=== PATIENT | male | born 1935 | race Caucasian/White ===

== ENCOUNTER → 2024-02-13 13:30 | Outpatient (REF) | payer MEDICARE, SELFPAY ==
[2024-02-13 14:45] LABS: Creatine Phosphokinase 85 U/L (55-170)
== END ==
LOC: REG 13:30
PROVIDERS: ATTENDING PHYSICIAN Family Medicine
DX: M79.604 Pain in right leg (principal); M79.605 Pain in left leg
CPT/HCPCS: 36415; 72110; 72170; 82550

== ENCOUNTER → 2024-03-12 14:44 | Outpatient (REF) | payer MEDICARE, SELFPAY ==
[2024-03-12 16:52] LABS: % Basophils 0.7 % (0-2); % Eosinophils 4.7 % (0-6); % Immature Granulocytes 0.4 % (0-0.5); % Lymphocytes 26.6 % (20.5-51.1); % Neutrophils 56.6 % (42.2-75.2); Absolute Basophils 0.1 10^3/uL (0-0.2); Absolute Eosinophils 0.4 10^3/uL (0-0.7); Absolute Monocytes 0.8 10^3/uL (0.1-0.6); Absolute Neutrophils 4.3 10^3/uL (1.4-6.5); Hematocrit 31.6 % (39.0-52.0); Hemoglobin 10.8 g/dL (13.0-18.0); Mean Corp Hgb Conc. 34.2 g/dL (33.0-37.0); Mean Corpuscular Hgb 31.6 pg (27.0-31.0); Mean Corpuscular Volume 92.4 fL (80.0-94.0); Mean Platelet Volume 9.5 fL (7.4-10.4); Nucleated Red Blood Cells % 0 % (-); Platelet Count 274 10^3/uL (130-400); Red Blood Cell Count 3.42 10^6/uL (4.70-6.10); Red Cell Dist. Width 13.7 % (11.5-14.5); White Blood Cell Count 7.6 10^3/uL (4.8-10.8)
[2024-03-12 17:18] LABS: HDL Cholesterol 54 mg/dl; LDL Cholesterol, Calculated 119 mg/dl; Total Cholesterol 219 mg/dl (50-199); Triglyceride 234 mg/dl (10-149); Very Low Density Lipoprotein 46 mg/dl (0-30)
[2024-03-12 17:31] LABS: Microalbumin/creatinine Ratio 46.2 mg/g
[2024-03-12 17:58] LABS: TSH 1.09 uIU/ml (0.47-4.68)
[2024-03-12 18:17] LABS: Vitamin B12 > 1000 pg/ml (239-931)
[2024-03-13 09:31] LABS: Glycohemoglobin (HgbA1c) 8.4 % (4.0-5.6)
== END ==
LOC: RAD 14:44
PROVIDERS: ATTENDING PHYSICIAN Family Medicine
DX: M54.2 Cervicalgia (principal); E78.5 Hyperlipidemia, unspecified; E11.22 Type 2 diabetes mellitus with diabetic chronic kidney disease; R94.6 Abnormal results of thyroid function studies; R79.89 Other specified abnormal findings of blood chemistry
CPT/HCPCS: 36415; 72050; 80061; 82043; 82570; 82607; 83036; 84443; 85025

== ENCOUNTER → 2024-03-26 10:17 | Outpatient (REF) | payer MEDICARE, SELFPAY ==
[2024-03-26 11:05] LABS: % Basophils 0.7 % (0-2); % Eosinophils 3.8 % (0-6); % Lymphocytes 33.4 % (20.5-51.1); % Monocytes 16.1 % (1.7-9.3); Absolute Eosinophils 0.2 10^3/uL (0-0.7); Absolute Immature Granulocytes 0.1 10^3/uL (0-0.05); Absolute Monocytes 0.9 10^3/uL (0.1-0.6); Absolute Neutrophils 2.6 10^3/uL (1.4-6.5); Hematocrit 29.2 % (39.0-52.0); Mean Corp Hgb Conc. 34.2 g/dL (33.0-37.0); Mean Corpuscular Hgb 31.9 pg (27.0-31.0); Mean Corpuscular Volume 93.3 fL (80.0-94.0); Mean Platelet Volume 9.1 fL (7.4-10.4); Nucleated Red Blood Cells % 0 % (-); Platelet Count 218 10^3/uL (130-400); Red Blood Cell Count 3.13 10^6/uL (4.70-6.10); Red Cell Dist. Width 14.2 % (11.5-14.5); White Blood Cell Count 5.8 10^3/uL (4.8-10.8)
[2024-03-26 14:22] LABS: ALT (SGPT) 14 U/L (0-50); AST (SGOT) 19 U/L (17-59); Albumin 3.8 g/dl (3.5-5.0); Alkaline Phosphatase 75 U/L (38-126); Blood Urea Nitrogen 41 mg/dl (9-20); Calcium 9.4 mg/dl (8.4-10.2); Carbon Dioxide 22 mmol/L (22-30); Chloride 106 mmol/L (98-107); Glucose 168 mg/dl (70-99); Potassium 4.3 mmol/L (3.5-5.1); Sodium 136 mmol/L (135-145); Total Bilirubin 0.2 mg/dl (0.2-1.3); Total Protein 7.4 g/dl (6.3-8.2); eGFR 33.93
[2024-03-27 12:15] LABS: Beta-2-Microglobulin 7.6 mg/L (<=3.0)
[2024-03-28 13:17] LABS: Albumin 3.89 g/dL (3.75-5.01); Alpha 1 Globulin 0.33 g/dL (0.19-0.46); Alpha 2 Globulin 0.89 g/dL (0.48-1.05); Free Kappa Light Chains,Quant 311.69 mg/L (3.30-19.40); Free Lambda Light Chains,Quant 14.26 mg/L (5.71-26.30); IgA 70 mg/dL (68-408); IgG 1767 mg/dL (768-1632); IgM 27 mg/dL (35-263); Immunofixation Electrophoresis IFE Done; Kappa/Lambda Fr Light Ratio 21.86 (0.26-1.65); Monoclonal Protein 1.53 g/dL (<=0.00); Total Protein-Electrophoresis 7.4 g/dL (6.3-8.2)
== END ==
LOC: REG 10:17
PROVIDERS: ATTENDING PHYSICIAN Internal Medicine Hematology & Oncology; FAMILY PHYSICIAN Family Medicine
DX: D47.2 Monoclonal gammopathy (principal)
CPT/HCPCS: 36415; 80053; 82232; 82784; 83521; 84155; 84165; 85025; 86334

== ENCOUNTER → 2024-05-07 10:04 | Outpatient (REF) | payer MEDICARE, SELFPAY | LOC: RAD 10:04 | PROVIDERS: ATTENDING PHYSICIAN Internal Medicine Hematology & Oncology; FAMILY PHYSICIAN Family Medicine | DX: D47.2 Monoclonal gammopathy (principal) | CPT/HCPCS: 77075 ==

== ENCOUNTER → 2024-07-19 12:12 | Outpatient (REF) | payer MEDICARE, SELFPAY ==
[2024-07-19 12:49] LABS: % Eosinophils 4.4 % (0-6); % Immature Granulocytes 0.5 % (0-0.5); % Lymphocytes 26.1 % (20.5-51.1); % Monocytes 12.2 % (1.7-9.3); % Neutrophils 55.8 % (42.2-75.2); Absolute Basophils 0.1 10^3/uL (0-0.2); Absolute Eosinophils 0.3 10^3/uL (0-0.7); Absolute Lymphocytes 1.5 10^3/uL (1.2-3.4); Absolute Monocytes 0.7 10^3/uL (0.1-0.6); Absolute Neutrophils 3.2 10^3/uL (1.4-6.5); Hematocrit 30.1 % (39.0-52.0); Hemoglobin 10.4 g/dL (13.0-18.0); Mean Corp Hgb Conc. 34.6 g/dL (33.0-37.0); Mean Corpuscular Volume 92.6 fL (80.0-94.0); Mean Platelet Volume 9.2 fL (7.4-10.4); Nucleated Red Blood Cells % 0 % (-); Platelet Count 227 10^3/uL (130-400); Red Blood Cell Count 3.25 10^6/uL (4.70-6.10); Red Cell Dist. Width 13.7 % (11.5-14.5); White Blood Cell Count 5.7 10^3/uL (4.8-10.8)
[2024-07-19 13:31] LABS: ALT (SGPT) 12 U/L (0-50); AST (SGOT) 19 U/L (17-59); Albumin 4.1 g/dl (3.5-5.0); Alkaline Phosphatase 78 U/L (38-126); Blood Urea Nitrogen 26 mg/dl (9-20); Calcium 9.7 mg/dl (8.4-10.2); Carbon Dioxide 26 mmol/L (22-30); Chloride 103 mmol/L (98-107); Glucose 160 mg/dl (70-99); Iron 64 ug/dl (49-181); Potassium 4.3 mmol/L (3.5-5.1); Sodium 141 mmol/L (135-145); Total Bilirubin 0.3 mg/dl (0.2-1.3); Total Protein 7.3 g/dl (6.3-8.2); eGFR 48.95
[2024-07-19 13:40] LABS: Percent Saturation 21 % (20-50); Total Iron Binding Capacity 292 ug/dl (261-462)
[2024-07-19 14:05] LABS: Ferritin 57.3 ng/ml (17.9-464.0)
[2024-07-19 14:36] LABS: Folate > 20.0 ng/ml (2.76-20); Vitamin B12 > 1000 pg/ml (239-931)
[2024-07-21 23:33] LABS: Beta-2-Microglobulin 6.2 mg/L (<=3.0)
== END ==
LOC: REG 12:12
PROVIDERS: ATTENDING PHYSICIAN Internal Medicine Hematology & Oncology; FAMILY PHYSICIAN Family Medicine
DX: D47.2 Monoclonal gammopathy (principal)
CPT/HCPCS: 36415; 80053; 82232; 82607; 82728; 82746; 82784; 83521; 83540; 83550; 84155; 84165; 85025; 86334

== ENCOUNTER → 2024-08-07 12:23 | Outpatient (REF) | payer MEDICARE, SELFPAY ==
[2024-08-07 13:13] LABS: % Basophils 0.6 % (0-2); % Eosinophils 2.3 % (0-6); % Immature Granulocytes 0.6 % (0-0.5); % Lymphocytes 34.1 % (20.5-51.1); % Monocytes 13.4 % (1.7-9.3); Absolute Eosinophils 0.1 10^3/uL (0-0.7); Absolute Lymphocytes 1.8 10^3/uL (1.2-3.4); Absolute Monocytes 0.7 10^3/uL (0.1-0.6); Absolute Neutrophils 2.6 10^3/uL (1.4-6.5); Hematocrit 27.9 % (39.0-52.0); Hemoglobin 9.7 g/dL (13.0-18.0); Mean Corp Hgb Conc. 34.8 g/dL (33.0-37.0); Mean Corpuscular Hgb 32.6 pg (27.0-31.0); Mean Corpuscular Volume 93.6 fL (80.0-94.0); Mean Platelet Volume 9.6 fL (7.4-10.4); Nucleated Red Blood Cells % 0 % (-); Platelet Count 202 10^3/uL (130-400); Red Blood Cell Count 2.98 10^6/uL (4.70-6.10); Red Cell Dist. Width 13.2 % (11.5-14.5); White Blood Cell Count 5.3 10^3/uL (4.8-10.8)
[2024-08-07 13:36] LABS: ALT (SGPT) 13 U/L (0-50); AST (SGOT) 24 U/L (17-59); Albumin 3.8 g/dl (3.5-5.0); Alkaline Phosphatase 77 U/L (38-126); Blood Urea Nitrogen 42 mg/dl (9-20); Calcium 9.3 mg/dl (8.4-10.2); Carbon Dioxide 22 mmol/L (22-30); Chloride 101 mmol/L (98-107); Glucose 185 mg/dl (70-99); Iron 31 ug/dl (49-181); Potassium 4.4 mmol/L (3.5-5.1); Sodium 136 mmol/L (135-145); Total Bilirubin 0.3 mg/dl (0.2-1.3); Total Protein 6.9 g/dl (6.3-8.2); eGFR 38.53
[2024-08-07 13:46] LABS: Percent Saturation 11 % (20-50); Total Iron Binding Capacity 268 ug/dl (261-462)
[2024-08-07 14:22] LABS: Vitamin B12 978 pg/ml (239-931)
[2024-08-07 15:54] LABS: Folate > 20.0 ng/ml (2.76-20)
[2024-08-09 02:09] LABS: Beta-2-Microglobulin 7.4 mg/L (<=3.0)
[2024-08-10 10:09] LABS: Albumin 3.75 g/dL (3.75-5.01); Alpha 1 Globulin 0.32 g/dL (0.19-0.46); Alpha 2 Globulin 0.81 g/dL (0.48-1.05); Free Kappa Light Chains,Quant 403.95 mg/L (3.30-19.40); Free Lambda Light Chains,Quant 13.46 mg/L (5.71-26.30); IgA 61 mg/dL (68-408); IgG 1681 mg/dL (768-1632); IgM 25 mg/dL (35-263); Immunofixation Electrophoresis IFE Done; Kappa/Lambda Fr Light Ratio 30.01 (0.26-1.65); Monoclonal Protein 1.36 g/dL (<=0.00)
== END ==
LOC: REG 12:23
PROVIDERS: ATTENDING PHYSICIAN Internal Medicine Hematology & Oncology; FAMILY PHYSICIAN Family Medicine
DX: D47.2 Monoclonal gammopathy (principal)
CPT/HCPCS: 36415; 80053; 82232; 82607; 82728; 82746; 82784; 83521; 83540; 83550; 84155; 84165; 85025; 86334

== ENCOUNTER → 2024-08-20 16:07 | Outpatient (REF) | payer MEDICARE, SELFPAY ==
[2024-08-20 10:45] LABS: % Basophils 0.8 % (0-2); % Eosinophils 4.1 % (0-6); % Immature Granulocytes 0.6 % (0-0.5); % Lymphocytes 22.4 % (20.5-51.1); % Monocytes 9.8 % (1.7-9.3); % Neutrophils 62.3 % (42.2-75.2); Absolute Basophils 0.1 10^3/uL (0-0.2); Absolute Eosinophils 0.3 10^3/uL (0-0.7); Absolute Lymphocytes 1.5 10^3/uL (1.2-3.4); Absolute Monocytes 0.6 10^3/uL (0.1-0.6); Absolute Neutrophils 4.1 10^3/uL (1.4-6.5); Hematocrit 28.9 % (39.0-52.0); Hemoglobin 9.8 g/dL (13.0-18.0); Mean Corp Hgb Conc. 33.9 g/dL (33.0-37.0); Mean Corpuscular Hgb 31.4 pg (27.0-31.0); Mean Corpuscular Volume 92.6 fL (80.0-94.0); Mean Platelet Volume 8.9 fL (7.4-10.4); Nucleated Red Blood Cells % 0 % (-); Platelet Count 333 10^3/uL (130-400); Red Blood Cell Count 3.12 10^6/uL (4.70-6.10); Red Cell Dist. Width 13.6 % (11.5-14.5); White Blood Cell Count 6.5 10^3/uL (4.8-10.8)
== END ==
LOC: OIDL 16:07
PROVIDERS: ATTENDING PHYSICIAN Internal Medicine Hematology & Oncology
DX: D47.2 Monoclonal gammopathy (principal)
CPT/HCPCS: 85025

== ENCOUNTER → 2024-09-17 10:33 | Outpatient (REF) | payer MEDICARE, SELFPAY ==
[2024-09-17 11:17] LABS: % Basophils 0.7 % (0-2); % Eosinophils 7.2 % (0-6); % Immature Granulocytes 0.3 % (0-0.5); % Lymphocytes 26.2 % (20.5-51.1); % Monocytes 10.5 % (1.7-9.3); % Neutrophils 55.1 % (42.2-75.2); Absolute Eosinophils 0.4 10^3/uL (0-0.7); Absolute Lymphocytes 1.6 10^3/uL (1.2-3.4); Absolute Monocytes 0.6 10^3/uL (0.1-0.6); Absolute Neutrophils 3.4 10^3/uL (1.4-6.5); Hematocrit 30.7 % (39.0-52.0); Hemoglobin 10.1 g/dL (13.0-18.0); Mean Corp Hgb Conc. 32.9 g/dL (33.0-37.0); Mean Corpuscular Hgb 31.4 pg (27.0-31.0); Mean Corpuscular Volume 95.3 fL (80.0-94.0); Mean Platelet Volume 9.4 fL (7.4-10.4); Nucleated Red Blood Cells % 0 % (-); Platelet Count 232 10^3/uL (130-400); Red Blood Cell Count 3.22 10^6/uL (4.70-6.10); Red Cell Dist. Width 14.6 % (11.5-14.5); White Blood Cell Count 6.1 10^3/uL (4.8-10.8)
== END ==
LOC: OIDL 10:33
PROVIDERS: ATTENDING PHYSICIAN Internal Medicine Hematology & Oncology
DX: D47.2 Monoclonal gammopathy (principal); D50.0 Iron deficiency anemia secondary to blood loss (chronic)
CPT/HCPCS: 85025

== ENCOUNTER → 2024-10-08 10:19 | Outpatient (REF) | payer MEDICARE, SELFPAY ==
[2024-10-08 11:02] LABS: % Basophils 0.3 % (0-2); % Immature Granulocytes 0.4 % (0-0.5); % Lymphocytes 28.3 % (20.5-51.1); % Monocytes 8.8 % (1.7-9.3); % Neutrophils 56.2 % (42.2-75.2); Absolute Eosinophils 0.4 10^3/uL (0-0.7); Absolute Monocytes 0.6 10^3/uL (0.1-0.6); Absolute Neutrophils 3.9 10^3/uL (1.4-6.5); Hematocrit 31.8 % (39.0-52.0); Hemoglobin 10.8 g/dL (13.0-18.0); Mean Corpuscular Hgb 32.2 pg (27.0-31.0); Mean Corpuscular Volume 94.9 fL (80.0-94.0); Mean Platelet Volume 9.7 fL (7.4-10.4); Nucleated Red Blood Cells % 0 % (-); Platelet Count 205 10^3/uL (130-400); Red Blood Cell Count 3.35 10^6/uL (4.70-6.10); Red Cell Dist. Width 14.6 % (11.5-14.5)
[2024-10-08 11:36] LABS: Iron 89 ug/dl (49-181)
[2024-10-08 11:46] LABS: Percent Saturation 32 % (20-50); Total Iron Binding Capacity 271 ug/dl (261-462)
== END ==
LOC: REG 10:19
PROVIDERS: ATTENDING PHYSICIAN Internal Medicine Hematology & Oncology; FAMILY PHYSICIAN Family Medicine
DX: D47.2 Monoclonal gammopathy (principal); D50.0 Iron deficiency anemia secondary to blood loss (chronic)
CPT/HCPCS: 36415; 82728; 83540; 83550; 85025

== ENCOUNTER → 2024-10-26 06:33 | Outpatient (REF) | payer MEDICARE, SELFPAY ==
[2024-10-26 07:35] LABS: % Basophils 0.8 % (0-2); % Eosinophils 6.9 % (0-6); % Immature Granulocytes 0.9 % (0-0.5); % Lymphocytes 21.4 % (20.5-51.1); % Monocytes 11.3 % (1.7-9.3); % Neutrophils 58.7 % (42.2-75.2); Absolute Basophils 0.1 10^3/uL (0-0.2); Absolute Eosinophils 0.4 10^3/uL (0-0.7); Absolute Immature Granulocytes 0.1 10^3/uL (0-0.05); Absolute Lymphocytes 1.4 10^3/uL (1.2-3.4); Absolute Monocytes 0.7 10^3/uL (0.1-0.6); Absolute Neutrophils 3.7 10^3/uL (1.4-6.5); Hematocrit 32.3 % (39.0-52.0); Hemoglobin 10.5 g/dL (13.0-18.0); Mean Corp Hgb Conc. 32.5 g/dL (33.0-37.0); Mean Corpuscular Volume 98.5 fL (80.0-94.0); Mean Platelet Volume 9.6 fL (7.4-10.4); Nucleated Red Blood Cells % 0 % (-); Platelet Count 196 10^3/uL (130-400); Red Blood Cell Count 3.28 10^6/uL (4.70-6.10); Red Cell Dist. Width 14.8 % (11.5-14.5); White Blood Cell Count 6.4 10^3/uL (4.8-10.8)
[2024-10-26 07:56] LABS: Urine Albumin Negative (Neg - Trace); Urine Bilirubin Negative (Negative); Urine Character Clear (Clear); Urine Color Yellow; Urine Glucose 3+ (Negative); Urine Ketone Negative (Negative); Urine Leukocyte Negative (Negative); Urine Nitrite Negative (Negative); Urine Occult Blood Negative (Negative); Urine Specific Gravity 1.015 (<1.030); Urine Urobilinogen Negative (Neg - 1+)
[2024-10-26 08:21] LABS: ALT (SGPT) 15 U/L (0-50); AST (SGOT) 19 U/L (17-59); Albumin 4.1 g/dl (3.5-5.0); Alkaline Phosphatase 78 U/L (38-126); Blood Urea Nitrogen 47 mg/dl (9-20); Calcium 9.6 mg/dl (8.4-10.2); Carbon Dioxide 24 mmol/L (22-30); Chloride 106 mmol/L (98-107); Glucose 207 mg/dl (70-99); Iron 127 ug/dl (49-181); Magnesium 2.1 mg/dl (1.6-2.3); Phosphorus 4.4 mg/dl (2.5-4.5); Potassium 4.4 mmol/L (3.5-5.1); Sodium 139 mmol/L (135-145); Total Bilirubin 0.3 mg/dl (0.2-1.3); Total Protein 7.3 g/dl (6.3-8.2); Uric Acid 6.5 mg/dl (3.5-8.5)
[2024-10-26 08:31] LABS: Percent Saturation 47 % (20-50); Total Iron Binding Capacity 270 ug/dl (261-462)
[2024-10-26 08:36] LABS: Free T4 0.79 ng/dl (0.78-2.19)
[2024-10-26 08:50] LABS: PSA, Total - Screen 0.29 ng/ml (0.0-4.0)
[2024-10-26 09:26] LABS: Folate > 20.0 ng/ml (2.76-20); Vitamin B12 > 1000 pg/ml (239-931)
== END ==
LOC: REG 06:33
PROVIDERS: ATTENDING PHYSICIAN Family Medicine
DX: I10 Essential (primary) hypertension (principal); E78.5 Hyperlipidemia, unspecified; Z00.00 Encounter for general adult medical examination without abnormal findings; Z12.5 Encounter for screening for malignant neoplasm of prostate; D51.9 Vitamin B12 deficiency anemia, unspecified
CPT/HCPCS: 80053; 81003; 82607; 82728; 82746; 83540; 83550; 83735; 84100; 84439; 84443; 84550; 85025; G0103

== ENCOUNTER → 2025-01-09 13:49 | Outpatient (REF) | payer MEDICARE, SELFPAY ==
[2025-01-09 14:51] LABS: Hemoglobin 10.6 g/dL (13.0-18.0)
[2025-01-09 15:39] LABS: Blood Urea Nitrogen 40 mg/dl (9-20); Calcium 9.3 mg/dl (8.4-10.2); Carbon Dioxide 24 mmol/L (22-30); Chloride 104 mmol/L (98-107); Glucose 298 mg/dl (70-99); Phosphorus 3.9 mg/dl (2.5-4.5); Potassium 4.4 mmol/L (3.5-5.1); Sodium 137 mmol/L (135-145)
[2025-01-09 15:46] LABS: Protein/creatinine Ratio 0.5; Urine Protein 31 mg/dl
[2025-01-09 15:50] LABS: Intact PTH 12.5 pg/ml (13.6-85.8)
== END ==
LOC: REG 13:49
PROVIDERS: ATTENDING PHYSICIAN Specialist; FAMILY PHYSICIAN Family Medicine
DX: I10 Essential (primary) hypertension (principal); E11.22 Type 2 diabetes mellitus with diabetic chronic kidney disease; E78.2 Mixed hyperlipidemia; E78.5 Hyperlipidemia, unspecified; R94.6 Abnormal results of thyroid function studies
CPT/HCPCS: 36415; 80048; 82570; 83970; 84100; 84156; 85018

== ENCOUNTER → 2025-02-11 12:02 | Outpatient (REF) | payer MEDICARE, SELFPAY ==
[2025-02-11 12:47] LABS: % Basophils 0.8 % (0-2); % Eosinophils 3.6 % (0-6); % Immature Granulocytes 0.5 % (0-0.5); % Lymphocytes 35.2 % (20.5-51.1); % Monocytes 12.2 % (1.7-9.3); % Neutrophils 47.7 % (42.2-75.2); Absolute Eosinophils 0.1 10^3/uL (0-0.7); Absolute Lymphocytes 1.4 10^3/uL (1.2-3.4); Absolute Monocytes 0.5 10^3/uL (0.1-0.6); Absolute Neutrophils 1.8 10^3/uL (1.4-6.5); Hemoglobin 9.8 g/dL (13.0-18.0); Mean Corp Hgb Conc. 33.8 g/dL (33.0-37.0); Mean Corpuscular Hgb 32.7 pg (27.0-31.0); Mean Corpuscular Volume 96.7 fL (80.0-94.0); Mean Platelet Volume 9.3 fL (7.4-10.4); Nucleated Red Blood Cells % 0 % (-); Platelet Count 213 10^3/uL (130-400); Red Cell Dist. Width 14.1 % (11.5-14.5); White Blood Cell Count 3.9 10^3/uL (4.8-10.8)
[2025-02-11 13:11] LABS: ALT (SGPT) 20 U/L (0-50); AST (SGOT) 24 U/L (17-59); Albumin 3.9 g/dl (3.5-5.0); Alkaline Phosphatase 77 U/L (38-126); Blood Urea Nitrogen 27 mg/dl (9-20); Calcium 9.1 mg/dl (8.4-10.2); Carbon Dioxide 24 mmol/L (22-30); Chloride 104 mmol/L (98-107); Glucose 233 mg/dl (70-99); Iron 81 ug/dl (49-181); Potassium 4.1 mmol/L (3.5-5.1); Sodium 134 mmol/L (135-145); Total Bilirubin 0.6 mg/dl (0.2-1.3); Total Protein 6.9 g/dl (6.3-8.2); eGFR 41.44
[2025-02-11 13:22] LABS: Percent Saturation 31 % (20-50); Total Iron Binding Capacity 256 ug/dl (261-462)
[2025-02-12 09:54] LABS: Beta-2-Microglobulin 6.9 mg/L (<=3.0)
[2025-02-14 02:57] LABS: Albumin 3.69 g/dL (3.75-5.01); Alpha 1 Globulin 0.28 g/dL (0.19-0.46); Alpha 2 Globulin 0.75 g/dL (0.48-1.05); Free Kappa Light Chains,Quant 372.81 mg/L (3.30-19.40); Free Lambda Light Chains,Quant 14.26 mg/L (5.71-26.30); IgA 64 mg/dL (68-408); IgG 1586 mg/dL (768-1632); IgM 23 mg/dL (35-263); Immunofixation Electrophoresis IFE Done; Kappa/Lambda Fr Light Ratio 26.14 (0.26-1.65); Total Protein-Electrophoresis 6.7 g/dL (6.3-8.2)
== END ==
LOC: REG 12:02
PROVIDERS: ATTENDING PHYSICIAN Internal Medicine Hematology & Oncology
DX: D47.2 Monoclonal gammopathy (principal); D50.0 Iron deficiency anemia secondary to blood loss (chronic)
CPT/HCPCS: 36415; 80053; 82232; 82728; 82784; 83521; 83540; 83550; 84155; 84165; 85025; 86334

== ENCOUNTER → 2025-07-25 14:03 | Outpatient (REF) | payer MEDICARE, SELFPAY ==
[2025-07-25 14:41] LABS: Hematocrit 28.3 % (39.0-52.0); Hemoglobin 9.3 g/dL (13.0-18.0); Mean Corp Hgb Conc. 32.9 g/dL (33.0-37.0); Mean Corpuscular Volume 95.0 fL (80.0-94.0); Nucleated Red Blood Cells % 0 % (-); Platelet Count 228 10^3/uL (130-400); Red Cell Dist. Width 13.6 % (11.5-14.5)
[2025-07-25 15:07] LABS: ALT (SGPT) 16 U/L (0-50); AST (SGOT) 21 U/L (17-59); Albumin 3.9 g/dl (3.5-5.0); Alkaline Phosphatase 70 U/L (38-126); Blood Urea Nitrogen 20 mg/dl (9-20); Calcium 8.8 mg/dl (8.4-10.2); Carbon Dioxide 23 mmol/L (22-30); Chloride 109 mmol/L (98-107); Glucose 85 mg/dl (70-99); Iron 55 ug/dl (49-181); Potassium 4.1 mmol/L (3.5-5.1); Sodium 138 mmol/L (135-145); Total Protein 7.0 g/dl (6.3-8.2); eGFR 38.30
[2025-07-25 15:16] LABS: Total Iron Binding Capacity 247 ug/dl (261-462)
[2025-07-25 15:37] LABS: Ferritin 233.0 ng/ml (17.9-464.0)
== END ==
LOC: REG 14:03
PROVIDERS: ATTENDING PHYSICIAN Internal Medicine Hematology & Oncology; FAMILY PHYSICIAN Family Medicine
DX: D47.2 Monoclonal gammopathy (principal); D50.0 Iron deficiency anemia secondary to blood loss (chronic)
CPT/HCPCS: 36415; 80053; 82232; 82728; 82784; 83521; 83540; 83550; 84155; 84165; 85025; 86334

== ENCOUNTER → 2025-07-30 15:17 | Outpatient (REF) | payer MEDICARE, SELFPAY ==
[2025-07-30 15:54] LABS: Hemoglobin 9.3 g/dL (13.0-18.0)
[2025-07-30 16:24] LABS: Blood Urea Nitrogen 17 mg/dl (9-20); Calcium 9.1 mg/dl (8.4-10.2); Carbon Dioxide 27 mmol/L (22-30); Chloride 105 mmol/L (98-107); Glucose 267 mg/dl (70-99); Potassium 4.5 mmol/L (3.5-5.1); Sodium 136 mmol/L (135-145); eGFR 35.76
[2025-07-30 16:30] LABS: Urine Character Clear (Clear)
[2025-07-30 16:41] LABS: Urine Red Blood Cell 0-2 /HPF (0-2); Urine White Cell 0-2 /HPF (0-5)
== END ==
LOC: REG 15:17
PROVIDERS: ATTENDING PHYSICIAN Specialist; FAMILY PHYSICIAN Family Medicine
DX: I10 Essential (primary) hypertension (principal); E78.2 Mixed hyperlipidemia; N17.9 Acute kidney failure, unspecified
CPT/HCPCS: 36415; 80048; 81003; 81015; 82570; 83970; 84100; 84156; 85018

== ENCOUNTER 2025-08-06 00:51 | Inpatient (IN) | payer MEDICARE, SELFPAY ==
[2025-08-05 18:33] VITALS: BP 114/93
[2025-08-05] MEDS: MOTRIN 400 MG PO (18:44)
[2025-08-05 19:08] LABS: Hematocrit 26.7 % (39.0-52.0); Hemoglobin 9.1 g/dL (13.0-18.0); Mean Corp Hgb Conc. 34.1 g/dL (33.0-37.0); Mean Corpuscular Volume 94.0 fL (80.0-94.0); Nucleated Red Blood Cells % 0 % (-); Platelet Count 197 10^3/uL (130-400); Red Cell Dist. Width 14.3 % (11.5-14.5)
[2025-08-05 19:12] LABS: Urine Character Slightly Cloudy (Clear)
[2025-08-05 19:23] LABS: Urine Squamous Cell 0-2 /LPF (Few)
[2025-08-05 19:40] LABS: ALT (SGPT) 24 U/L (0-50); AST (SGOT) 59 U/L (17-59); Albumin 3.8 g/dl (3.5-5.0); Alkaline Phosphatase 75 U/L (38-126); Blood Urea Nitrogen 34 mg/dl (9-20); Calcium 9.2 mg/dl (8.4-10.2); Carbon Dioxide 24 mmol/L (22-30); Chloride 105 mmol/L (98-107); Glucose 53 mg/dl (70-99); Potassium 3.6 mmol/L (3.5-5.1); Sodium 137 mmol/L (135-145); Total Protein 7.3 g/dl (6.3-8.2); eGFR 29.72
--- NOTE | 2025-08-05 19:44 | EDRN ---
Pt low serum glu. He reports his sensor notified him and he took his glucose pills. He declined boxed lunch. Informed of plan to accucheck 15 min from ingestion.
[2025-08-05 20:02] LABS: Glucose - Point of Care 127 mg/dl (70-99)
--- NOTE | 2025-08-05 20:02 | EDRN ---
Waiting room, accucheck 127. Awaiting room. Informed of delays.
[2025-08-05 20:39] VITALS: BP 112/57; BMI 25.3
[2025-08-05 21:00] VITALS: BP 108/50
--- NOTE | 2025-08-05 21:49 | ED.GENMED ---
History of Present Illness
General
Chief Complaint: Fall
Source: patient
Time Seen by Provider: 08/05/25 20:53
History of Present Illness
History of Present Illness:
89-year-old male presents to the emergency room for evaluation of mild confusion, increased sleepiness. Symptoms been present for the past couple days. Patient has a continuous glucose monitor which has been noting his glucose to be low early in
the morning. He is taking his prescribed dose of insulins. He denies any nausea, vomiting, decreased appetite. He is noted to have a temperature of 102 earlier today at an urgent care. He was given Tylenol. Patient denies any cough, sore
throat, dysuria or frequency. He denies any rash. He is not outside for any significant amount of time other than going back and forth to a car.
Past History
Past History
ED Past Medical History: HTN, Hypercholesterolemia, NIDDM and Other (Vertigo)
ED Past Surgical History: None
Social History
Tobacco: Non-smoker
Alcohol: None
Drug: None
Personal:
Living: with family
Employment: Retired
Family History
Family History: Other (reviewed and noncontributory)
Phy Exam
Physical Exam
Physical Exam:
General: Awake, Alert, Oriented X3. No acute distress. Appears stated age
Vitals: Febrile on arrival
Head: Atraumatic
Eyes: Pupils equal, EOMI
Throat: Airway intact, no exudates
Neck: Trachea midline
Lungs: Clear and equal b/l
Heart: Regular rate, no murmurs
Abd: Soft, Nontender, No pulsatile mass
Neuro: Nonfocal
Skin: Warm, dry, no rash
Extremities: pulses equal b/l, no edema
Course
Orders/Labs/Results
Orders:
Orders
08/05/25 18:38
Ibuprofen [Motrin] 400 mg PO NOW STA
08/05/25 18:41
CR Chest - 2 Views Urgent
Comment:
Reason For Exam: fever
08/05/25 18:54
Complete Blood Count/With Diff Urgent
Comprehensive Metabolic Panel Urgent
Lactic Acid Urgent
Urine Microscopic Reflex Cult Urgent
Urine Reflex Culture from UA [Urinalysis Reflex To Culture] Urgent
Date Specimen was Collected: 08/05/25
Time Specimen was Collected: 18:46
Urine Culture Urgent
JUAN Source: U
Specimen Description:
Date Specimen was Collected: 08/05/25
Time Specimen was Collected: 18:46
08/05/25 21:38
COVID-19 Antigen Urgent
Source: Nasal Swab
08/05/25 21:52
0.9% Sodium Chloride 500 ml [Nss] 500 ml IV BOLUS
08/05/25 21:53
Bedside Glucose- Treatment ONCE
08/05/25 23:45
Blood Culture Q30M
JUAN Source: Blood/Venous
Specimen Description:
08/06/25 00:09
Blood Culture Q30M
JUAN Source: Blood/Venous
Specimen Description:
08/06/25 00:38
Admit/Transfer Patient As Directed
Co-Sign Provider:
Level of Care: Inpatient admission
Assign to:: Telemetry
Physician / Group: Ramez
Diagnosis: Hypoglycemia, RAJINDER, Fever
Reason for Telemetry: Arrhythmia
Date to Stop Telemetry: 08/09/25
Time to Stop Telemetry: 11:00
Reason for Hospitalization: Hypoglycemia, RAJINDER, Fever
Expected length of stay greater than two midnights?: Yes
ELOS- Estimated Length of Stay in days: 3
I certify the patient meets the requirements for IP care: Yes
PRN Pain Medication Management As Directed
May give lesser potent ordered pain med per pt: Yes
preference::
Protocol:: Medication orders for pain may be administered in a
manner that supports deferring to patient preference
when the pt is:
- Requesting an ordered lesser potent pain medication.
Least to most potent pain medications are defined
as: acetaminophen < NSAID < tramadol < opioids
(morphine, oxycodone, hydromorphone).
- Requesting a lesser dose of the same medication IF
ORDERED.
- Requesting a less intrusive route of administration
if both routes are prescribed by the provider (PO <
IV).
08/06/25 00:41
Code Status As Directed
Resuscitation Status: Full Code
08/09/25 11:00
DC Protocol for Telemetry ONCE
Abnormal Lab Results
08/05/25 08/05/25 08/05/25
18:54 20:00 23:20
RBC 2.84 L 10^6/uL
(4.70-6.10)
Hgb 9.1 L g/dL
(13.0-18.0)
Hct 26.7 L %
(39.0-52.0)
MCH 32.0 H pg
(27.0-31.0)
Abs Immat Gran (auto) 0.1 H 10^3/uL
(0-0.05)
Absolute Neuts (auto) 7.0 H 10^3/uL
(1.4-6.5)
Absolute Lymphs (auto) 1.1 L 10^3/uL
(1.2-3.4)
Absolute Monos (auto) 1.5 H 10^3/uL
(0.1-0.6)
Immature Gran % 0.6 H %
(0-0.5)
Lymphocytes % 11.0 L %
(20.5-51.1)
Monocytes % 15.4 H %
(1.7-9.3)
BUN 34 H mg/dl
(9-20)
Creatinine 2.1 H mg/dL
(0.7-1.3)
Glucose 53 L* mg/dl
(70-99)
Ur Occult Blood Reflex 4+ A
(Negative)
Urine RBC 7-10 A /HPF
(0-2)
Urine Bacteria (Reflex) Moderate A
(Negative)
Urine Albumin (Reflex) 3+ A
(Neg - Trace)
POC Glucose 127 H mg/dl 61 L mg/dl
(70-99) (70-99)
08/05/25 18:54
08/05/25 18:54
Vital Signs
Initial and Last Documented VS:
Initial Vital Signs
Temp Pulse Resp BP Pulse Ox
101.6 F H 103 20 114/93 93
08/05/25 18:33 08/05/25 18:33 08/05/25 18:33 08/05/25 18:33 08/05/25 18:33
Last Documented Vital Signs
Temp Pulse Resp BP Pulse Ox
98.7 F 66 14 120/56 98
08/05/25 20:41 08/06/25 01:45 08/06/25 01:45 08/06/25 01:00 08/06/25 01:30
MDM/Problems Addressed
Differential Diagnosis Includes:
UTI, pneumonia, viral illness
MDM/Problems Addressed:
COVID test negative. Chest x-ray shows no acute abnormality on my review. Urinalysis is not suggestive of a urinary tract infection. Platelet count is normal. Patient has no rash, LFTs are normal which argue against a tickborne illness. In
addition to his febrile illness the patient has been having episodes of hypoglycemia. He arrived hypoglycemic which did respond to oral glucose replacement. Glucose improved for couple hours but again dropped to 60. Further glucose replacement
was given orally but I feel patient should be hospitalized for close glucose monitoring as well as supportive care for fever and monitoring of cultures.
*Radiology
Radiology exam reviewed: preliminary read by ED provider (No acute abnormality to my review of the patient's chest x-ray)
*Pulse Oximetry
SaO2: 93
Oxygen Mode of Delivery: Room air
Patient hypoxic: no
*[facility] [employer] [facility] Interpretation
Rate: normal
Interpretation: normal
Rhythm: sinus
*Critical Care Note
Total Time (30-74mins, 75-104mins- exclusive of procedures): Not Applicable
Patient Management
Social determinants of health affecting care: Living situation (Lives with family) and Strong social support
ED Attending Note
-
Portions of this chart may have been created with voice recognition software.� Occasional wrong word or��sound alike� substitutions may have occurred due to the inherent limitations of voice recognition software.
Discharge Plan
Departure
Patient Disposition: Admit
Date of Disposition: 08/05/25
Time of Disposition: 23:38
Admit to: Med/Surg
Presentation/result/management discussed w/ accepting MD/DO: Hospitalist
Condition: Fair
Discharge Problem:
Fever, Hypoglycemia
Interventions
Interventions:
*Risk Screen - Suicide Last Done: 08/05/25 20:39
*General Assessment Last Done: 08/05/25 18:33
*Neglect/Abuse Screening Last Done: 08/05/25 20:39
*ED- Fall Risk Assessment Last Done: 08/05/25 20:39
*ED COVID-19 Vaccine History Last Done: 08/05/25 20:39
*Nursing Disposition Last Done: 08/06/25 01:49
ED-Musculoskeletal Assessment Last Done: 08/05/25 20:45
ED- Neurological Assessment Last Done: 08/05/25 20:45
ED-Skin Assessment Last Done: 08/05/25 20:45
Discharge Date and Time
Discharge Date/Time: 08/06/25 01:50
[2025-08-05 21:54] LABS: COVID-19 Antigen Negative (Negative)
[2025-08-05 22:09] VITALS: BP 116/61
[2025-08-05 22:10] LABS: Glucose - Point of Care 82 mg/dl (70-99)
[2025-08-05] MEDS: NSS 500 IV (22:11)
[2025-08-05 23:00] VITALS: BP 111/53
[2025-08-05 23:22] LABS: Glucose - Point of Care 61 mg/dl (70-99)
--- NOTE | 2025-08-05 23:28 | EDRN ---
Patient's blood sugar was 61, informed Dr. Toussaint and gave patient some orange juice to drink, updated patient and family member informing them that the patient will be admitted to the hospital
[2025-08-06] VITALS (11 sets, daily range): BP systolic 93–145; BP diastolic 51–73; PULSE 67–95; O2SAT 97; BMI 24.6
[2025-08-06 00:08] LABS: Glucose - Point of Care 99 mg/dl (70-99)
--- NOTE | 2025-08-06 00:43 | HPS.HSE ---
Family Physician
-
Family Physician: Edmar Pulliam
Chief Complaint
-
Confusion / Lethargy
History of Present Illness
Patient is an 89y M with PMH significant for hypertension and DM-II who presents to ED for evaluation of lethargy and mild confusion. Patient states that he has been having low sugars at home for the past 3-4 days. He reports needing to take
5-6 glucose tablets per day and usually he does not take these at all. He states that his only recent med change was the addition of dicyclomine for IBS symptoms. This was about one week ago. He took several doses - but stopped once he began
having low blood sugars. He denies any recent changes in DM medications / insulin doses.
He denies any other complaints including fevers / chills, sore throat, cough / SOB, abdominal pain, N/V/D, etc.
Patient was noted to have fever today at [facility] and again here on triage.
Medical History
Past Medical History
Past Medical History: Reports Other
Additional Past Medical History:
MGUS
Hypertension
DM-II
CKD III
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
Thyroid Disease
Skin Cancer
Past Surgical History: Reports Other
Additional Past Surgical History:
T&A
Social History
Tobacco: Former Smoker (Quit smoking in 1969.)
Alcohol: None
Drug: None
Family History
Family History: Not pertinent
Allergies / Home Medications
Allergies reflects when Allergies were last updated in [employer].
Home Medications with original date entered in [employer]
Allergy/Medication List:
Allergies
Allergy/AdvReac Type Severity Reaction Status Date / Time
No Known Allergies Allergy Verified 08/05/25 18:33
Home Medications
aspirin 81 mg tablet,delayed release 81 mg PO DAILY 10/28/21
acetaminophen 325 mg tablet (Tylenol) 650 mg PO Q6HPRN PRN mild pain 08/05/25
dicyclomine 10 mg capsule 10 mg PO DAILYPRN PRN stoamch issuses 08/05/25
gabapentin 100 mg capsule 200 mg PO HS 08/05/25
glimepiride 4 mg tablet 4 mg PO BID 08/05/25
insulin glargine 100 unit/mL (3 mL) subcutaneous pen (Lantus Solostar U-100 Insulin) 10 unit SC DAILY 08/05/25
lisinopril 20 mg-hydrochlorothiazide 25 mg tablet 1 tab PO DAILY 08/05/25
omeprazole 20 mg tablet,delayed release 20 mg PO BID 08/05/25
tamsulosin 0.4 mg capsule (Flomax) 0.4 mg PO BID 08/05/25
therapeutic multivitamin 1 tab PO DAILY 08/05/25
Review of Systems
-
History Source: Patient
A 12 point ROS was completed and negative except as noted: Yes
Constitutional: Reports Fatigue; Denies Fever or Chills
EENT: Denies Sore Throat or Runny Nose
Respiratory: Denies Cough or Trouble Breathing
Cardiac: Denies Chest Pain or Palpitations
Abdomen/GI: Denies Abdominal Pain, Nausea, Vomiting or Diarrhea
: Denies Dysuria, Frequency or Flank Pain
Musculoskeletal: Denies Joint Pain
Neurological: Denies Dizzy or Headache
Physical Exam
Vital Signs
Vital Signs
Temp Pulse Resp BP Pulse Ox
98.7 F 63 13 117/63 100
08/05/25 20:41 08/06/25 00:00 08/06/25 00:00 08/06/25 00:00 08/06/25 00:00
Physical Exam
General: Other (89y M sleeping on my arrival but wakes easily. Answers questions / follows commands appropriately.)
HEENT: Moist mucous membranes and PERRLA
Respiratory: Clear; No Wheezes, Rales or Rhonchi
Cardiac: S1/S2, Regular Rhythm and Murmur (II/ NATALIIA)
GI: Soft, Non Tender, Non Distended and Normal Bowel Sounds
Musculoskeletal: No Clubbing, No Cyanosis and No Edema
Neuro: AO x 3 and Nonfocal/grossly intact
Laboratory Results
-
08/05/25 18:54
08/05/25 18:54
Laboratory Results
Lactic Acid 1.0 mmol/L (0.7-2.0) 08/05/25 18:54
Total Bilirubin 0.4 mg/dl (0.2-1.3) 08/05/25 18:54
AST 59 U/L (17-59) 08/05/25 18:54
ALT 24 U/L (0-50) 08/05/25 18:54
Alkaline Phosphatase 75 U/L (38-126) 08/05/25 18:54
Impression/Plan
-
A/P: Patient is an 89y M with PMH significant for hypertension, DM-II and thyroid disease who presents to ED for evaluation of lethargy, weakness and low blood sugars at home.
Hypoglycemia
DM-II, Uncontrolled
- Admit for further evaluation and treatment.
- ? med effect related to newly added dicyclomine - though not a common adverse effect.
- ? infectious etiology given fever - though no focal symptoms / obvious source.
- Hold sulfonylureas.
- Supplemental dextrose in IVFs overnight.
- Follow glucose closely until stable.
- Update A1C.
- Adjust insulin dose / med regimen as needed to avoid hypoglycemia.
Fever
- Unclear etiology. ? viral process.
- Follow fever curve and monitor for any new / focal symptoms.
- Follow-up culture data.
- CXR and COVID negative. UA unremarkable. No abdominal tenderness or GI symptoms.
RAJINDER on CKD III
- SCr = 2.1 compared to recent baseline of 1.7 on outpatient labs.
- IVFs as noted above.
- Hold lisinopril-HCT.
- Follow for improvement in renal function.
Benign Hypertension
- Holding lisinopril - HCT as noted above.
- Monitor BP and add alternate medication if needed.
MGUS
Anemia of Chronic Disease
- Stable. Hgb is at / near known baseline.
- Follow for changes in cell counts.
Thyroid Disease
- History of thyroiditis.
- Check TFTs given hypoglycemia.
DVT Prophylaxis: SCDs
Code Status: Full
[2025-08-06 02:03] LABS: Glucose - Point of Care 121 mg/dl (70-99)
--- NOTE | 2025-08-06 02:30 | PTCARENOTE ---
Pt received from ED via stretcher at 0150. Pt pleasant, AAOx3, VSS, and able to ambulate into room with assistance. Pt absent of pain at this time. Pt receptive to room and call leal. Pt bed in lowest position and call leal within reach. Pt educated
on importance of call leal usage, pt relays understanding. Bed alarm placed and plugged in. Will continue with current plan of care.
[2025-08-06] MEDS: D5/0.9% SODIUM CHLORIDE 1000 IV (02:36)
[2025-08-06 04:01] LABS: Glucose - Point of Care 239 mg/dl (70-99)
[2025-08-06 07:59] LABS: Glucose - Point of Care 292 mg/dl (70-99)
[2025-08-06 08:13] LABS: Hematocrit 25.3 % (39.0-52.0); Hemoglobin 8.2 g/dL (13.0-18.0); Mean Corp Hgb Conc. 32.4 g/dL (33.0-37.0); Mean Corpuscular Volume 95.8 fL (80.0-94.0); Platelet Count 212 10^3/uL (130-400); Red Cell Dist. Width 14.6 % (11.5-14.5)
[2025-08-06] MEDS: FLOMAX 0.4 MG PO ×2 (08:13→20:06)
[2025-08-06] MEDS: PROTONIX 40 MG PO ×2 (08:14→20:06)
[2025-08-06] MEDS: ASPIR LOW (ENTERIC COATED) 81 MG PO (08:14)
[2025-08-06] MEDS: LANTUS 0.08 UNITS SC (08:15)
[2025-08-06] MEDS: NOVOLOG FLEXPEN-LOW RESISTANCE 3 UNITS SC (08:16)
[2025-08-06 09:52] LABS: Blood Urea Nitrogen 37 mg/dl (9-20); Calcium 8.4 mg/dl (8.4-10.2); Carbon Dioxide 21 mmol/L (22-30); Chloride 107 mmol/L (98-107); Estimated Creatinine Clearance 20 ml/min; Glucose 290 mg/dl (70-99); Potassium 3.8 mmol/L (3.5-5.1); Sodium 136 mmol/L (135-145); eGFR 26.64
[2025-08-06 10:37] LABS: Glycohemoglobin (HgbA1c) 7.2 % (4.0-5.6)
--- NOTE | 2025-08-06 11:10 | W.PN.HOSP.TC ---
Today's Communication/Plan
-
Assessment / Plan
Assessment / Plan
General: No Apparent Distress, Comfortable and Conversant
HEENT: NormoCephalic, Moist mucous membranes, Atraumatic
Respiratory: Clear and Non Labored Respirations
Cardiac: S1/S2 and Regular Rhythm; No Rub or Gallop
GI: Soft, Non Tender, Non Distended and Normal Bowel Sounds
Musculoskeletal: No Edema, no deformity
Skin: Warm and dry
: NO Foster
Neuro: Awake, Alert, Nonfocal/grossly intact
Psych: Calm and Intact Judgment/Insight
Mr. Cohen is an 89-year-old male with medical history of CKD stage III, insulin-dependent diabetes mellitus, MGUS, IBS, Gonzales's esophagus, and thyroiditis who presented with lethargy and confusion. He was found to be significantly
hypoglycemic. Patient reported that his blood sugars had been low over the past 3 to 4 days after starting dicyclomine for IBS symptoms. He stopped taking his dicyclomine prior to arrival. He has been using his same home doses of insulin glargine
and glimepiride. He was found to be mildly febrile in the ED with a temperature of 101.6 �F. Labs revealed an RAJINDER on CKD with an initial creatinine of 2.1 (baseline appears to be around 1.7). He was started on IV fluids with dextrose and admitted
for further evaluation and management.
Hypoglycemia:
- Unclear etiology
- Possibly due to dicyclomine causing decreased transit time and subsequent increased absorption of home glimepiride doses
- Could also possibly be due to thyroid disease considering his history of thyroiditis, current thyroid studies are abnormal with a TSH of 8.88 and a free T4 of 0.75
- Blood sugar currently elevated now that he has been on IV fluids with dextrose, will hold IV fluids for now
- Recommend avoiding further dicyclomine use for now
- Trial low-dose Synthroid, although this is extremely slow acting and will need outpatient follow-up for further titration
- Continue insulin glargine and sliding scale for now, holding glimepiride
IDDM:
- Hemoglobin A1c 7.2%
- Plan as above
RAJINDER on CKD:
- CKD stage III at baseline, creatinine appears to be 1.5-2.0 at baseline
- Initial creatinine 2.1, increased to 2.3 today
- Received resuscitative fluids
- Holding home lisinopril-HCTZ for now
- Will monitor
Fever:
- Initial temperature of 101.6 �F, however has been afebrile since
- No evidence of acute infection, cultures negative to date, chest x-ray shows no acute abnormalities, no pulmonary or abdominal symptoms
- Will monitor off antibiotics for now
Hypertension:
- Holding home lisinopril-HCTZ due to RAJINDER on CKD
- Blood pressure currently well-controlled
- Will monitor
Thyroid disease:
- History of thyroiditis
- Abnormal thyroid function test here with a TSH of 8.88 and a free T4 of 0.75
- Will trial on low-dose Synthroid
DVT prophylaxis: SCDs
CODE STATUS: Full code
Total time spent on today's encounter was 56 minutes
Anticipated Discharge: 24 - 48 hours
Subjective/Interval History
-
Date of Service: August 06, 2025
Patient was seen and examined at bedside this morning. Feeling well, chest finishes breakfast. Remains on IV fluids with dextrose. Afebrile since initial temp of 101.6 agrees Fahrenheit at time of admission. Cultures remain negative.
Objective Data
-
Labs:
Laboratory Results
08/06/25
06:59
WBC 6.8
Hgb 8.2 L
Hct 25.3 L
Plt Count 212
Sodium 136
Potassium 3.8
Chloride 107
Carbon Dioxide 21 L
BUN 37 H
Creatinine 2.3 H
Glucose 290 H
Calcium 8.4
Vital Signs:
Vital Signs
Temp Pulse Resp BP Pulse Ox
97.5 F 70 16 121/51 98
08/06/25 08:20 08/06/25 08:20 08/06/25 08:20 08/06/25 08:20 08/06/25 08:20
I&O
08/05/25 08/06/25 08/07/25
06:59 06:59 06:59
Intake Total 300 / 300
Balance 300 / 300
Review of Systems
-
History Source: Patient
All other systems: Reviewed and negative
Physical Exam
-
General: No Apparent Distress
--- NOTE | 2025-08-06 11:30 | CM ---
CM reviewed chart, patient seen bedside, initial assessment completed. Patient is an 89y M with PMH significant for hypertension and DM-II who presents to ED for evaluation of lethargy and mild confusion.
Patient able to complete initial assessment with patient. Patient resides independently in a two level home, no steps to enter. Patient reports having a cane in the home but does not typically use it. Patient reports VN in past, unsure name of
agency, denies SNF. PCP Edmar Pulliam, Pharmacy [facility], confirms prescription coverage. Patient denies insecurities at home. CM discussed therapy recommendations of VN, patient declining at this time. CM will continue to follow for all
discharge planning needs.
Plan; home when stable, declining VN at this time
[2025-08-06 11:52] LABS: Glucose - Point of Care 74 mg/dl (70-99)
[2025-08-06] MEDS: NOVOLOG FLEXPEN-LOW RESISTANCE SC (11:57)
[2025-08-06] MEDS: SYNTHROID 50 MCG PO (12:05)
[2025-08-06 16:52] LABS: Glucose - Point of Care 219 mg/dl (70-99)
[2025-08-06] MEDS: NOVOLOG FLEXPEN-LOW RESISTANCE 2 UNITS SC (17:00)
[2025-08-06 20:54] LABS: Glucose - Point of Care 152 mg/dl (70-99)
[2025-08-06] MEDS: NEURONTIN 200 MG PO (21:28)
[2025-08-07 03:00] VITALS: BP 124/68
[2025-08-07 03:46] VITALS: BMI 24.3
[2025-08-07] MEDS: SYNTHROID 50 MCG PO (05:18)
[2025-08-07 07:23] LABS: Glucose - Point of Care 117 mg/dl (70-99)
[2025-08-07 07:26] LABS: Hematocrit 26.2 % (39.0-52.0); Hemoglobin 8.7 g/dL (13.0-18.0); Mean Corp Hgb Conc. 33.2 g/dL (33.0-37.0); Mean Corpuscular Volume 92.3 fL (80.0-94.0); Nucleated Red Blood Cells % 0 % (-); Platelet Count 218 10^3/uL (130-400); Red Cell Dist. Width 14.4 % (11.5-14.5)
[2025-08-07] MEDS: NOVOLOG FLEXPEN-LOW RESISTANCE SC ×2 (07:32→11:53)
[2025-08-07] MEDS: LANTUS 0.08 UNITS SC (07:32)
[2025-08-07] MEDS: FLOMAX 0.4 MG PO (07:33)
[2025-08-07] MEDS: ASPIR LOW (ENTERIC COATED) 81 MG PO (07:33)
[2025-08-07] MEDS: PROTONIX 40 MG PO (07:33)
[2025-08-07 07:42] VITALS: BP 128/61
[2025-08-07 07:54] LABS: Blood Urea Nitrogen 25 mg/dl (9-20); Calcium 8.8 mg/dl (8.4-10.2); Carbon Dioxide 22 mmol/L (22-30); Chloride 111 mmol/L (98-107); Estimated Creatinine Clearance 29 ml/min; Glucose 107 mg/dl (70-99); Magnesium 1.7 mg/dl (1.6-2.3); Potassium 3.9 mmol/L (3.5-5.1); Sodium 139 mmol/L (135-145); eGFR 41.19
--- NOTE | 2025-08-07 10:46 | W.DCSUMMARY ---
Discharge Summary
Discharge Data
Date of Admission: 08/06/25
Date of Discharge: 08/07/25
Total time spent discharging patient (in min): 58
-
Pending Results: No
Hospital Course
Mr. Cohen is an 89-year-old male with medical history of CKD stage III, insulin-dependent diabetes mellitus, MGUS, IBS, Gonzales's esophagus, and thyroiditis who presented with lethargy and confusion. He was found to be significantly
hypoglycemic. Patient reported that his blood sugars had been low over the past 3 to 4 days after starting dicyclomine for IBS symptoms. He stopped taking his dicyclomine prior to arrival. He has been using his same home doses of insulin glargine
and glimepiride that he had been on for at least 6 months. He was found to be mildly febrile in the ED with a temperature of 101.6 �F. Labs revealed an RAJINDER on CKD with an initial creatinine of 2.1 (baseline appears to be around 1.7). He was
started on IV fluids with dextrose and admitted for further evaluation and management.
His lethargy and confusion resolved with improvement in his blood glucose after being started on IV fluids with dextrose. His home glimepiride was held and his insulin glargine dose was decreased from 10 units to 8 units daily. Sliding scale
insulin was ordered and he required only a total of 5 additional units over 24 hours. His thyroid function test were abnormal with a TSH of 8.88 and a free T4 of 0.75. He does report having intermittently taken thyroid hormone replacement at the
direction of his primary physician. Currently, etiology of his symptomatic hypoglycemia is unclear but it is possibly due to abnormal thyroid function. He has been started on a low-dose of Synthroid at 50 mcg daily and will need to follow-up with
his primary care physician for ongoing monitoring and dosage adjustments as needed. It is recommended that he avoid dicyclomine use at this time as it may have contributed to his hyperglycemia in the setting of decreasing gastroenteric transit time
and subsequently increasing absorption time of his glimepiride. He will be continued on his home glimepiride at discharge however at a decreased dose of 2 mg once daily instead of 4 mg twice daily. He has been instructed to hold this medication if
he becomes hypoglycemic. He should continue monitoring his blood sugars and continue managing his diabetic regimen with the direction of his primary care physician. He will be continued on the decreased dose of insulin glargine 8 units daily after
discharge. He did have an acute kidney injury at the time of admission with a creatinine that peaked at 2.3. His kidney function returned to his baseline after IV fluids with a creatinine of 1.6 on the day of discharge. His blood pressure was
well-controlled during this admission without the use of his home lisinopril-HCTZ 20 mg - 25 mg. This blood pressure medication will be changed to lisinopril alone at a decreased dose of 10 mg daily. He should follow-up with his primary care
physician for ongoing blood pressure monitoring and adjustments to his antihypertensive medication regimen as needed. He remained afebrile after his initial fever of 101.6 �F in the ED. He had no clinical or imaging evidence of infection. His
cultures remained negative. He was medically stable at time of hospital discharge.
General: No Apparent Distress, Comfortable and Conversant
HEENT: NormoCephalic, Moist mucous membranes, Atraumatic
Respiratory: Clear and Non Labored Respirations
Cardiac: S1/S2 and Regular Rhythm; No Rub or Gallop
GI: Soft, Non Tender, Non Distended and Normal Bowel Sounds
Musculoskeletal: No Edema, no deformity
Skin: Warm and dry
: NO Foster
Neuro: Awake, Alert, Nonfocal/grossly intact
Psych: Calm and Intact Judgment/Insight
Discharge Plan
-
Patient Disposition: Home (Routine Discharge)
Discharge Diagnosis/Procedures: Hypoglycemia
Activity Restrictions/Additional Instructions:
Mr. Cohen is an 89-year-old male with medical history of CKD stage III, insulin-dependent diabetes mellitus, MGUS, IBS, Gonzales's esophagus, and thyroiditis who presented with lethargy and confusion. He was found to be significantly
hypoglycemic. Patient reported that his blood sugars had been low over the past 3 to 4 days after starting dicyclomine for IBS symptoms. He stopped taking his dicyclomine prior to arrival. He has been using his same home doses of insulin glargine
and glimepiride that he had been on for at least 6 months. He was found to be mildly febrile in the ED with a temperature of 101.6 �F. Labs revealed an RAJINDER on CKD with an initial creatinine of 2.1 (baseline appears to be around 1.7). He was
started on IV fluids with dextrose and admitted for further evaluation and management.
His lethargy and confusion resolved with improvement in his blood glucose after being started on IV fluids with dextrose. His home glimepiride was held and his insulin glargine dose was decreased from 10 units to 8 units daily. Sliding scale
insulin was ordered and he required only a total of 5 additional units over 24 hours. His thyroid function test were abnormal with a TSH of 8.88 and a free T4 of 0.75. He does report having intermittently taken thyroid hormone replacement at the
direction of his primary physician. Currently, etiology of his symptomatic hypoglycemia is unclear but it is possibly due to abnormal thyroid function. He has been started on a low-dose of Synthroid at 50 mcg daily and will need to follow-up with
his primary care physician for ongoing monitoring and dosage adjustments as needed. It is recommended that he avoid dicyclomine use at this time as it may have contributed to his hyperglycemia in the setting of decreasing gastroenteric transit time
and subsequently increasing absorption time of his glimepiride. He will be continued on his home glimepiride at discharge however at a decreased dose of 2 mg once daily instead of 4 mg twice daily. He has been instructed to hold this medication if
he becomes hypoglycemic. He should continue monitoring his blood sugars and continue managing his diabetic regimen with the direction of his primary care physician. He will be continued on the decreased dose of insulin glargine 8 units daily after
discharge. He did have an acute kidney injury at the time of admission with a creatinine that peaked at 2.3. His kidney function returned to his baseline after IV fluids with a creatinine of 1.6 on the day of discharge. His blood pressure was
well-controlled during this admission without the use of his home lisinopril-HCTZ 20 mg - 25 mg. This blood pressure medication will be changed to lisinopril alone at a decreased dose of 10 mg daily. He should follow-up with his primary care
physician for ongoing blood pressure monitoring and adjustments to his antihypertensive medication regimen as needed. He remained afebrile after his initial fever of 101.6 �F in the ED. He had no clinical or imaging evidence of infection. His
cultures remained negative. He was medically stable at time of hospital discharge.
Referrals:
Edmar Pulliam DO [Family Provider, [facility]]
Prescriptions:
New
levothyroxine 50 mcg Tablet
50 mcg PO DAILY @ 0600 30 Days Qty: 30 0RF
lisinopril 10 mg tablet
10 mg PO DAILY Qty: 30 0RF
Continued
aspirin 81 MG tablet,delayed release (DR/EC)
81 mg PO DAILY
acetaminophen [Tylenol] 325 mg Tablet
650 mg PO Q6HPRN PRN (Reason: mild pain)
therapeutic multivitamin Tablet
1 tab PO DAILY
tamsulosin [Flomax] 0.4 mg Capsule
0.4 mg PO BID
gabapentin 100 mg Capsule
200 mg PO HS
omeprazole 20 mg Tablet,Delayed Release (Dr/Ec)
20 mg PO BID
Changed
glimepiride 4 mg Tablet
2 mg PO DAILY Qty: 0 0RF
insulin glargine [Lantus Solostar U-100 Insulin] 100 unit/mL (3 mL) Insulin Pen
8 unit SC DAILY Qty: 0 0RF
Discontinued
lisinopril-hydrochlorothiazide 20-25 mg Tablet
1 tab PO DAILY
dicyclomine 10 mg Capsule
10 mg PO DAILYPRN PRN (Reason: stoamch issuses)
Discharge Orders:
Discharge Patient (As Directed); Ordered 08/07/25
Ordered By: Jaden Moon
Discharge Date and Time
Print Language: MACEDONIAN
[2025-08-07 11:08] VITALS: BP 124/63
[2025-08-07 11:10] VITALS: BP 121/64; BP 121/67; BP 124/63; PULSE 76; PULSE 82; PULSE 90
[2025-08-07 11:50] LABS: Glucose - Point of Care 144 mg/dl (70-99)
--- NOTE | 2025-08-07 11:59 | CM ---
CM reviewed chart, patient seen bedside with family, for discharge today. Patient denies needs upon discharge. IMM verbally reviewed, provided with copy, placed in chart. Family to transport home. CM will continue to follow for all discharge
planning needs.
Plan; home no needs
== END 2025-08-07 13:09 | disposition home or self-care (01) | DRG 639 ==
LOC: 4 WEST ACU 00:51
PROVIDERS: Student in an Organized Health Care Education/Training Program; ADMITTING PHYSICIAN Hospitalist; ATTENDING PHYSICIAN Internal Medicine; EMERGENCY PHYSICIAN Emergency Medicine; FAMILY PHYSICIAN Family Medicine
DX: E11.649 Type 2 diabetes mellitus with hypoglycemia without coma (principal); N17.9 Acute kidney failure, unspecified; R41.0 Disorientation, unspecified; N18.30 Chronic kidney disease, stage 3 unspecified; E11.22 Type 2 diabetes mellitus with diabetic chronic kidney disease; E78.00 Pure hypercholesterolemia, unspecified; I12.9 Hypertensive chronic kidney disease with stage 1 through stage 4 chronic kidney disease, or unspecified chronic kidney disease; E11.65 Type 2 diabetes mellitus with hyperglycemia; D47.2 Monoclonal gammopathy; K21.9 Gastro-esophageal reflux disease without esophagitis; K44.9 Diaphragmatic hernia without obstruction or gangrene; D63.0 Anemia in neoplastic disease; R50.9 Fever, unspecified; K22.70 Barrett's esophagus without dysplasia; K58.9 Irritable bowel syndrome, unspecified; E06.9 Thyroiditis, unspecified; E07.9 Disorder of thyroid, unspecified; Z60.2 Problems related to living alone; Z11.52 Encounter for screening for COVID-19; Z85.828 Personal history of other malignant neoplasm of skin; Z87.891 Personal history of nicotine dependence; Z79.84 Long term (current) use of oral hypoglycemic drugs; Z79.4 Long term (current) use of insulin; Z79.82 Long term (current) use of aspirin
CPT/HCPCS: 71046; 80048; 80053; 81003; 81015; 82962; 83036; 83605; 83735; 84100; 84439; 84443; 85025; 85027; 87040; 87086; 87811; 96360; 97162; 99285

== ENCOUNTER → 2025-08-15 09:04 | Outpatient (REF) | payer MEDICARE, SELFPAY ==
[2025-08-15 10:56] LABS: Microalb - Urine Creatinine 89.100 mg/dl
[2025-08-15 11:02] LABS: Microalbumin, Random Urine 6.5 mg/dl (0.6-1.7)
[2025-08-15 11:25] LABS: ALT (SGPT) 24 U/L (0-50); AST (SGOT) 23 U/L (17-59); Albumin 3.6 g/dl (3.5-5.0); Alkaline Phosphatase 80 U/L (38-126); Blood Urea Nitrogen 27 mg/dl (9-20); Calcium 9.1 mg/dl (8.4-10.2); Carbon Dioxide 26 mmol/L (22-30); Chloride 104 mmol/L (98-107); Glucose 140 mg/dl (70-99); HDL Cholesterol 43 mg/dl; LDL Cholesterol, Calculated 82 mg/dl; Potassium 4.5 mmol/L (3.5-5.1); Sodium 138 mmol/L (135-145); Total Protein 7.1 g/dl (6.3-8.2); Very Low Density Lipoprotein 19 mg/dl (0-30); eGFR 41.19
== END ==
LOC: REG 09:04
PROVIDERS: ATTENDING PHYSICIAN Family Medicine; OTHER PHYSICIAN Specialist
DX: I10 Essential (primary) hypertension (principal); E11.22 Type 2 diabetes mellitus with diabetic chronic kidney disease; E78.5 Hyperlipidemia, unspecified; N18.32 Chronic kidney disease, stage 3b
CPT/HCPCS: 36415; 80053; 80061; 82043; 82570

== ENCOUNTER → 2025-09-21 10:36 | Outpatient (REF) | payer MEDICARE, SELFPAY ==
[2025-09-21 12:57] LABS: ALT (SGPT) 19 U/L (0-50); AST (SGOT) 26 U/L (17-59); Albumin 3.7 g/dl (3.5-5.0); Alkaline Phosphatase 78 U/L (38-126); Blood Urea Nitrogen 32 mg/dl (9-20); Calcium 9.1 mg/dl (8.4-10.2); Carbon Dioxide 26 mmol/L (22-30); Chloride 107 mmol/L (98-107); Glucose 140 mg/dl (70-99); Potassium 4.2 mmol/L (3.5-5.1); Sodium 136 mmol/L (135-145); Total Protein 7.2 g/dl (6.3-8.2); eGFR 48.34
[2025-09-21 14:56] LABS: Glycohemoglobin (HgbA1c) 7.3 % (4.0-5.9)
== END ==
LOC: REG 10:36
PROVIDERS: ATTENDING PHYSICIAN Internal Medicine Endocrinology, Diabetes & Metabolism; FAMILY PHYSICIAN Family Medicine
DX: E11.65 Type 2 diabetes mellitus with hyperglycemia (principal)
CPT/HCPCS: 36415; 80053; 83036

== ENCOUNTER → 2025-10-01 16:27 | Outpatient (REF) | payer MEDICARE, SELFPAY ==
[2025-10-01 17:56] LABS: Blood Urea Nitrogen 23 mg/dl (9-20); Calcium 9.5 mg/dl (8.4-10.2); Carbon Dioxide 30 mmol/L (22-30); Chloride 100 mmol/L (98-107); Glucose 91 mg/dl (70-99); Potassium 4.1 mmol/L (3.5-5.1); Sodium 138 mmol/L (135-145); eGFR 44.50
== END ==
LOC: REG 16:27
PROVIDERS: ATTENDING PHYSICIAN Specialist; FAMILY PHYSICIAN Family Medicine
DX: I10 Essential (primary) hypertension (principal); E78.2 Mixed hyperlipidemia; E78.5 Hyperlipidemia, unspecified
CPT/HCPCS: 36415; 80048

== ENCOUNTER → 2025-11-07 09:06 | Outpatient (REF) | payer MEDICARE, SELFPAY | LOC: HWRAD 09:06 | PROVIDERS: ATTENDING PHYSICIAN Family Medicine | DX: R10.9 Unspecified abdominal pain (principal) | CPT/HCPCS: 76700 ==

== ENCOUNTER → 2025-11-26 13:03 | Outpatient (REF) | payer MEDICARE, SELFPAY ==
[2025-11-26 14:05] LABS: Hematocrit 30.1 % (39.0-52.0); Hemoglobin 10.0 g/dL (13.0-18.0); Mean Corp Hgb Conc. 33.2 g/dL (33.0-37.0); Mean Corpuscular Volume 95.6 fL (80.0-94.0); Nucleated Red Blood Cells % 0 % (-); Platelet Count 245 10^3/uL (130-400); Red Cell Dist. Width 14.7 % (11.5-14.5)
[2025-11-26 14:28] LABS: ALT (SGPT) 17 U/L (0-50); AST (SGOT) 22 U/L (17-59); Albumin 4.1 g/dl (3.5-5.0); Alkaline Phosphatase 92 U/L (38-126); Blood Urea Nitrogen 30 mg/dl (9-20); Calcium 9.0 mg/dl (8.4-10.2); Carbon Dioxide 27 mmol/L (22-30); Chloride 102 mmol/L (98-107); Glucose 171 mg/dl (70-99); Potassium 4.3 mmol/L (3.5-5.1); Sodium 135 mmol/L (135-145); Total Protein 7.2 g/dl (6.3-8.2); eGFR 38.30
== END ==
LOC: REG 13:03
PROVIDERS: ATTENDING PHYSICIAN Internal Medicine Hematology & Oncology; FAMILY PHYSICIAN Family Medicine
DX: D47.2 Monoclonal gammopathy (principal); D50.0 Iron deficiency anemia secondary to blood loss (chronic)
CPT/HCPCS: 36415; 80053; 82232; 82784; 83521; 84155; 84165; 85025; 86334